=== PATIENT | female | born 2000 | race Caucasian/White ===

== ENCOUNTER 2018-09-04 14:41 | Emergency (ER) | payer SELFPAY ==
[2018-09-04 14:45] VITALS: BP 95/43; PULSE 61; TEMP 98.6; BMI 28.8
--- NOTE | 2018-09-04 16:20 | PDOC ---
History of Present Illness - General Chief Complaint: Pain, Acute Stated Complaint: RT LOWER ABD PAIN - History of Present Illness Initial Comments: Ruby Brennan is an otherwise healthy 18yo woman who presents with RLQ and right flank pain that started around noon today. She also reports an episode of vomiting today. She has not tried to eat, but she was able to drink without incident. She states that her pain is sharp, non-radiating, and constant. She feels that it has become more posterior throughout the afternoon. She denies fever, chills, change in bowel habits, or nausea/vomiting prior to the incident today. She did notice dysuria and frequency for the past few days but has not noticed hematuria. She has never had any abdominal surgery or history of kidney stones. Past History - Past Medical History Allergies/Adverse Reactions: Allergies Allergy/AdvReac Type Severity Reaction Status Date / Time No Known Allergies Allergy Verified 09/04/18 14:43 COPD: No - Suicide/Smoking/Psychosocial Hx Smoking History: Former smoker Have you smoked in the past 12 months: No If you are a former smoker, when did you quit?: few years ago Information on smoking cessation initiated: No Review of Systems - Review of Systems Comments:: General: No fevers, no chills, no weight or appetite change, no malaise HEENT: No changes in vision, no changes in hearing, no congestion, no sore throat CV: No chest pain, no palpitations, no LE edema Pulm: No SOB, no cough, no wheezing GI: No nausea or vomiting, no change in bowel habits, no melena : +frequency, +dysuria, No hematuria Musc: No back pain, no joint swelling, no recent injury Skin: No rash, no lesions, no erythema Endo: No excessive thirst, no heat/cold intolerance Heme: No unusual bruising or bleeding, no swollen glands Neuro: No syncope, no numbness/tingling, no focal weakness Vasc: No claudication Psych: No recent change in mood, no SI or HI *Physical Exam - Vital Signs Last Vital Signs Temp Pulse Resp BP Pulse Ox 98.6 F 61 20 95/43 L 98 09/04/18 14:43 09/04/18 14:43 09/04/18 14:43 09/04/18 14:43 09/04/18 14:43 - Physical Exam Comments: General: Comfortable, no acute distress HEENT: PERRL, EOMI, MMM, voice normal, normal neck ROM, no LAD Cards: RRR, no murmur appreciated Pulm: Comfortable on room air, clear to auscultation bilaterally Abd: Soft, nontender, nondistended : No CVA tenderness Ext: Atraumatic. No LE edema. ROM intact. Strength 5/5 and equal bilaterally Vasc: Extremities WWP. Palpable radial and pedal pulses bilaterally Skin: Normal color, no rashes or lesions Neuro: A&Ox3, CN grossly intact, normal speech, motor/sensory grossly intact and symmetric Psych: Mood appropriate to situation ED Treatment Course - LABORATORY CBC & Chemistry Diagram: 09/04/18 16:43 09/04/18 16:43 Medical Decision Making - Medical Decision Making 09/04/18 16:44 Ruby Brennan is an otherwise healthy 18yo woman who presents with RLQ and right flank pain as well as an episode of vomiting this afternoon. She also reports dysuria and urinary frequency for several days. - DDx includes UTI, kidney stone, appendicitis, cholecystitis, ovarian cyst, ovarian torsion - Given completely benign physical exam, no fever, no recent systemic symptoms UTI or kidney stone are most likely - UA, urine culture, urine preg, CBC, CMP ordered for evaluation - May need imaging, to be determined depending on lab results 09/04/18 18:20 - Labs reviewed, leukocytosis to 15.4 - UA with 2+ protein, 2+ blood, 2+ leuk esterase, 75 WBC, 48 RBC. Suspicious for both infection and stone. Concern for pyelonephrosis or infected stone. Will send for CT renal stone protocol to evaluate. Will also be able to evaluate surrounding structures. - Ceftriaxone 1g IV given for UTI or possible pyelo 09/04/18 19:09 - CT pending Patient endorsed to Dr Medina. Discussed with Dr Mueller. Elizabeth Zabala PGY1 *DC/Admit/Observation/Transfer Diagnosis at time of Disposition: Right flank pain - Referrals Referrals: ON STAFF,NOT [Primary Care Provider] - - Patient Instructions - Post Discharge Activity
[2018-09-04] MEDS ORDERED: ACETAMINOPHEN 325 MG TABLET (FP) PO ONE (16:44)
--- NOTE | 2018-09-04 16:59 | PDOC ---
Attending Attestation - HPI HPI: 09/04/18 17:42 The patient is a 18 year old female, with no significant past medical history, who presents to the ED complaining of abdominal pain since noon today. She describes her pain as localized in the right lower quadrant and right flank, ranging from mild to moderate, without radiation or modifying factors. She notes that she is able to tolerate PO intake. She describes her pain as sharp, constant and non radiating. She reports that she did noticed Dysuria and frequency. The patient denies chest pain, shortness of breath, headache and dizziness. Denies fever, chills, nausea, vomiting, diarrhea or constipation. Denies urgency and hematuria. Allergies: None Past surgical history: None reported Social History: No alcohol, tobacco and reported - Physicial Exam PE: 09/04/18 17:42 General: Comfortable, no acute distress HEENT: PERRL, EOMI, MMM, voice normal, normal neck ROM, no LAD Cards: RRR, no murmur appreciated Pulm: Comfortable on room air, clear to auscultation bilaterally Abd: Soft, nontender, nondistended : No CVA tenderness Ext: Atraumatic. No LE edema. ROM intact. Strength 5/5 and equal bilaterally Vasc: Extremities WWP. Palpable radial and pedal pulses bilaterally Skin: Normal color, no rashes or lesions Neuro: A&Ox3, CN grossly intact, normal speech, motor/sensory grossly intact and symmetric Psych: Mood appropriate to situation <DianatammieestevanRichard - Last Filed: 09/04/18 17:42> - Resident Resident Name: Elizabeth Zabala - ED Attending Attestation I have performed the following: I have examined & evaluated the patient, The case was reviewed & discussed with the resident, I agree w/resident's findings & plan, Exceptions are as noted - Medical Decision Making 09/04/18 17:55 18 yo F presenting to the ER with a complaint of right flank pain since noon No fevers or chills One episode of vomiting no prior episode like this Pain is sharp, constant no alleviating factors Upon arrival pain is 10/10 DD includes but is not limited to: Kidney stone, pyelonephritis, musculoskeletal pain, Will do: Labs UA Given Tylenol for pain CT vs US 09/04/18 18:00 Laboratory Tests 09/04/18 09/04/18 09/04/18 16:43 16:43 16:43 WBC 15.4 H Hgb 15.4 H Hct 46.2 H Plt Count 211 BUN 8 Creatinine 0.6 Urine Blood 2+ H Ur Leukocyte Esterase 2+ H Urine WBC (Auto) 75 Urine RBC (Auto) 48 Ur Epithelial Cells Few Urine Mucus Moderate Urine HCG, Qual Negative Will give Ceftriaxone for UTI Will discharge on Cepfodoxime Repeat BP per Dr Medina Clinical Impression: pyelonpehritis, initial presentation <Samina Mueller - Last Filed: 09/08/18 07:50> *DC/Admit/Observation/Transfer <Richard Winkler - Last Filed: 09/04/18 17:42> <Samina Mueller - Last Filed: 09/08/18 07:50> Diagnosis at time of Disposition: Right flank pain - Discharge Dispostion Disposition: HOME Condition at time of disposition: Stable - Prescriptions Prescriptions: Cefpodoxime Proxetil [Vantin -] 100 mg PO BID #20 tablet - Referrals Referrals: [facility] [place] [facility] [place] [Provider Group] ON STAFF,NOT [Primary Care Provider] - - Patient Instructions Printed Discharge Instructions: DI for Kidney Infection Additional Instructions: You were seen in the emergency department for the evaluation of your right sided pain with associative pain with urination. It was found on urine analysis that you have an infection. Your CT does not show a kidney stone. This is a preliminary report and a final report possibly can uncover additional information. We will provide a call back if there is a difference from the final and preliminary report. Please take the antibiotics prescribed to you as directed on the label. In addition, please follow up with a primary care provider (one was provided in this discharge paper) within 24-48 hours after discharge for follow up care and management. Please return to the emergency department if you experience worsening pain or new concerning symptoms such as fevers/chills, nausea/vomiting, blood in the urine. Thank you. - Post Discharge Activity
[2018-09-04 17:10] LABS: HCG,QUALITATIVE URINE Negative
[2018-09-04 17:12] LABS: URINE APPEARANCE SLCLOUDY; URINE BILIRUBIN NEGATIVE (<2.0 mg/dL); URINE COLOR AMBER; URINE GLUCOSE (UA) NEGATIVE (NEGATIVE); URINE KETONE NEGATIVE (NEGATIVE); URINE LEUK ESTERASE 2+ (NEGATIVE); URINE NITRITE NEGATIVE (NEGATIVE); URINE PROTEIN 2+ (NEGATIVE); URINE UROBILINOGEN NEGATIVE mg/dL (0.2-1.0)
[2018-09-04 17:18] LABS: EPI CELLS FEW /HPF (FEW); URINE MUCUS MODERATE
[2018-09-04] MEDS ORDERED: SODIUM CHLORIDE 0.9% 500 ML INFUS.BAG IV ONE (17:22)
[2018-09-04 17:25] LABS: BASO % 0.2 % (0-2.0); EOS % 0.3 % (0-4.5); HEMATOCRIT 46.2 % (32.4-45.2); HEMOGLOBIN 15.4 GM/dL (10.7-15.3); LYMPH % 7.1 % (8-40); MCH 29.5 pg (25.7-33.7); MCHC 33.3 g/dl (32.0-36.0); MEAN CELL VOLUME 88.6 fl (80-96); MEAN PLT VOLUME 9.8 fl (7.5-11.1); MONO % 4.9 % (3.8-10.2); NEUT % 87.5 % (42.8-82.8); PLATELET COUNT 211 K/MM3 (134-434); RBC 5.21 M/mm3 (3.60-5.2); RDW 13.9 % (11.6-15.6); WHITE BLOOD COUNT 15.4 K/mm3 (4.0-10.0)
[2018-09-04] MEDS ORDERED: ACETAMINOPHEN 325 MG TABLET (FP) ONE (17:33)
[2018-09-04 17:49] LABS: ALBUMIN 4.1 g/dl (3.4-5.0); ALK PHOS 86 U/L (45-117); ANION GAP 9 MMOL/L (8-16); BILIRUBIN,TOTAL 0.4 mg/dL (0.2-1); BLOOD UREA NITROGEN 8 mg/dL (7-18); CALCIUM 9.6 mg/dL (8.5-10.1); CHLORIDE 106 mmol/L (98-107); CO2 23 mmol/L (21-32); CREATININE 0.6 mg/dL (0.55-1.3); GLUCOSE,RANDOM 86 mg/dL (74-106); POTASSIUM 4.2 mmol/L (3.5-5.1); SGOT/AST 30 U/L (15-37); SGPT/ALT 44 U/L (13-61); SODIUM 138 mmol/L (136-145); TOT PROT 7.8 g/dl (6.4-8.2)
[2018-09-04] MEDS ORDERED: CEFTRIAXONE 1,000 MG in DEXTROSE 5%-WATER - 50 ML IVPB ONE (18:09)
[2018-09-04] MEDS ORDERED: cefTRIAXone SODIUM 1 GM VIAL ONE (18:51)
--- NOTE | 2018-09-04 20:46 | PDOC ---
*Physical Exam - Vital Signs Last Vital Signs Temp Pulse Resp BP Pulse Ox 98.6 F 61 20 95/43 L 98 09/04/18 14:43 09/04/18 14:43 09/04/18 14:43 09/04/18 14:43 09/04/18 14:43 - Physical Exam Comments: 09/04/18 20:34 I received sign out from Dr. Zabala ED Treatment Course - LABORATORY CBC & Chemistry Diagram: 09/04/18 16:43 09/04/18 16:43 - ADDITIONAL ORDERS Additional order review: Laboratory Results 09/04/18 09/04/18 16:43 16:43 Sodium 138 Potassium 4.2 Chloride 106 Carbon Dioxide 23 Anion Gap 9 BUN 8 Creatinine 0.6 Creat Clearance w eGFR > 60 Random Glucose 86 Calcium 9.6 Total Bilirubin 0.4 AST 30 ALT 44 Alkaline Phosphatase 86 Total Protein 7.8 Albumin 4.1 Urine Color Vivi Urine Appearance Slcloudy Urine pH 5.0 Ur Specific [place] 1.020 Urine Protein 2+ H Urine Glucose (UA) Negative Urine Ketones Negative Urine Blood 2+ H Urine Nitrite Negative Urine Bilirubin Negative Urine Urobilinogen Negative Ur Leukocyte Esterase 2+ H Urine WBC (Auto) 75 Urine RBC (Auto) 48 Ur Epithelial Cells Few Urine Mucus Moderate Urine HCG, Qual Negative 09/04/18 16:43 RBC 5.21 H MCV 88.6 MCHC 33.3 RDW 13.9 MPV 9.8 Neutrophils % 87.5 H Lymphocytes % 7.1 L Monocytes % 4.9 Eosinophils % 0.3 Basophils % 0.2 - Medications Given in the ED: ED Medications Discontinued Medications Generic Name Dose Route Start Last Admin Trade Name Luis PRN Reason Stop Dose Admin Acetaminophen 975 mg 09/04/18 16:44 09/04/18 17:32 Tylenol - PO 09/04/18 16:45 975 mg ONCE ONE Administration Ceftriaxone Sodium 1,000 mg/ 50 mls @ 100 mls/hr 09/04/18 18:09 09/04/18 18: 50 Dextrose IVPB 09/04/18 18:38 100 mls/hr ONCE ONE Administration Sodium Chloride 1,000 ml 09/04/18 17:22 09/04/18 17:32 Normal Saline - IV 09/04/18 17:23 1,000 ml ONCE ONE Administration *DC/Admit/Observation/Transfer Diagnosis at time of Disposition: Right flank pain - Discharge Dispostion Disposition: HOME Decision to Admit order: No - Prescriptions Prescriptions: Cefpodoxime Proxetil [Vantin -] 100 mg PO BID #20 tablet - Referrals Referrals: ON STAFF,NOT [Primary Care Provider] - [facility] [place] [facility] [place] [Provider Group] - Patient Instructions Printed Discharge Instructions: DI for Kidney Infection Additional Instructions: You were seen in the emergency department for the evaluation of your right sided pain with associative pain with urination. It was found on urine analysis that you have an infection. Your CT does not show a kidney stone. This is a preliminary report and a final report possibly can uncover additional information. We will provide a call back if there is a difference from the final and preliminary report. Please take the antibiotics prescribed to you as directed on the label. In addition, please follow up with a primary care provider (one was provided in this discharge paper) within 24-48 hours after discharge for follow up care and management. Please return to the emergency department if you experience worsening pain or new concerning symptoms such as fevers/chills, nausea/vomiting, blood in the urine. Thank you. - Post Discharge Activity
== END 2018-09-04 20:50 | disposition home or self-care (01) ==
LOC: JER 14:41
DX: N39.0 Urinary tract infection, site not specified (principal)
CPT/HCPCS: 36415; 74176; 80053; 81003; 81015; 84703; 85025; 87086; 87186; 99282-25